=== PATIENT | female | born 1985 | race Caucasian/White ===

== ENCOUNTER 2016-05-15 08:41 | Emergency (ER) | payer OTHER, SELFPAY ==
[2016-05-15 08:51] VITALS: BP 123/85
[2016-05-15] MEDS ORDERED: Lidocaine 1% 10 ML MDV INJECT ONE (09:30)
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
[2016-05-15] MEDS ORDERED: Lidocaine 1% 30 ML SDV INJECT ONE (09:34)
== END 2016-05-15 10:27 | disposition home or self-care (01) ==
LOC: DL.ED 08:41
DX: S01.511A Laceration without foreign body of lip, initial encounter (principal); K21.9 Gastro-esophageal reflux disease without esophagitis; Z87.891 Personal history of nicotine dependence; W26.9XXA Contact with unspecified sharp object(s), initial encounter
CPT/HCPCS: 12011; 99283